=== PATIENT | female | born 1960 | race Caucasian/White ===

== ENCOUNTER 2017-03-15 23:54 | Emergency (ER) | payer BC ==
[2017-03-16] MEDS ORDERED: HYDROmorphone 1 MG/ML Syringe IM ONE (00:31)
--- NOTE | 2017-03-16 00:36 | EDM.PDOC ---
[id number] 4d ABD PAIN Time Seen by Provider: 03/16/17 00:15 Source: Reports: Patient, Family History Limitations: Reports: No limitations - History of Present Illness INITIAL COMMENTS - FREE TEXT/NARRATIVE: 57-year-old female with epigastric pain for the past 6 hours, started after she ate. No diarrhea, she did vomit once prior to coming into the hospital. Pain seems to radiate around to the back. No shortness of breath or pleuritic pain, no chest pain. No history of similar pain and no previous abdominal surgeries other than a years ago. She tried Rolaids and Prilosec which didn't help. Timing/Duration: Reports: Hour(s): (6 hours) Location: other (Pain is epigastric) Quality: Reports: ache, stabbing Severity: moderate Associated Symptoms (-Female): Reports: back pain, nausea/vomiting. 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: Endocrine/Metabolic History: Reports: Diabetes, type II - Infectious Disease History Infectious Disease History: Reports: Chicken pox - Past Surgical History Female Surgical History: Reports: section Social & Family History - Tobacco Use Smoking Status *Q: Current Every Day Smoker Years of Tobacco use: 35 Packs/Tins Daily: 0.5 - Caffeine Use Caffeine Use: Reports: Coffee, Soda - Recreational Drug Use Recreational Drug Use: No ED ROS GENERAL - Review of Systems Review Of Systems: See Below Constitutional: Denies: fever, chills, malaise HEENT: Reports: No symptoms Respiratory: Denies: Shortness of Breath, Pleuritic Chest Pain Cardiovascular: Reports: No symptoms GI/Abdominal: Reports: Abdominal pain, Nausea, Vomiting. Denies: Diarrhea, Hematemesis, Hematochezia : Reports: no symptoms Musculoskeletal: Reports: no symptoms Skin: Reports: no symptoms Neurological: Denies: Headache Psychiatric: Reports: No symptoms ED EXAM, GI/ABD - Physical Exam Exam: See Below Exam Limited By: No limitations General Appearance: alert, no apparent distress (Looks uncomfortable but not distressed) Eyes: bilateral: normal appearance (No jaundice) Respiratory/Chest: no respiratory distress, lungs clear Cardiovascular: regular rate, rhythm GI/Abdominal: soft, tenderness (Reactive tenderness in the epigastric and left upper quadrant but no guarding or rebound) Extremities: normal inspection. No: pedal edema Neurological: alert, oriented Psychiatric: normal affect, normal mood Skin Exam: Warm, Dry Course - Vital Signs Last Recorded V/S: Last Vital Signs Temp 98.9 F 03/16/17 00:11 Pulse 78 03/16/17 00:11 Resp 16 03/16/17 00:11 BP 135/96 H 03/16/17 00:11 Pulse Ox 93 L 03/16/17 00:11 - Orders/Labs/Meds Labs: Laboratory Tests 03/16/17 03/16/17 Range/Units 00:40 00:40 WBC 8.7 (4.5-11.0) K/uL RBC 4.91 (3.30-5.50) M/uL Hgb 15.5 H (12.0-15.0) g/dL Hct 45.6 (36.0-48.0) % MCV 93 (80-98) fL MCH 32 H (27-31) pg MCHC 34 (32-36) % Plt Count 219 (150-400) K/uL Neut % (Auto) 62 (36-66) % Lymph % (Auto) 22 L (24-44) % [place] % (Auto) 6 (2-6) % Eos % (Auto) 9 H (2-4) % Baso % (Auto) 2 H (0-1) % Sodium 144 (140-148) mmol/L Potassium 4.0 (3.6-5.2) mmol/L Chloride 109 H (100-108) mmol/L Carbon Dioxide 23 (21-32) mmol/L Anion Gap 16.0 H (5.0-14.0) mmol/L BUN 15 (7-18) mg/dL Creatinine 0.9 (0.6-1.0) mg/dL Est Cr Clr Drug Dosing TNP Estimated GFR (MDRD) > 60 (>60) Glucose 134 H (74-106) mg/dL Calcium 8.7 (8.5-10.1) mg/dL Total Bilirubin 0.4 (0.2-1.0) mg/dL AST 20 (15-37) U/L ALT 30 (12-78) U/L Alkaline Phosphatase 192 H (46-116) U/L Total Protein 7.8 (6.4-8.2) g/dL Albumin 3.8 (3.4-5.0) g/dL Globulin 4.0 H (2.3-3.5) g/dL Albumin/Globulin Ratio 1.0 L (1.2-2.2) Amylase 64 (25-115) U/L Lipase 117 (73-393) U/L Meds: Medications Discontinued Medications Generic Name Dose Route Start Last Admin Trade Name Freq PRN Reason Stop Dose Admin Hydromorphone HCl 1 mg 03/16/17 00:31 03/16/17 00:37 Dilaudid IM 03/16/17 00:32 1 mg ONETIME ONE Administration Ondansetron HCl 4 mg 03/16/17 00:58 03/16/17 01:05 Zofran Odt PO 03/16/17 00:59 4 mg ONETIME ONE Administration - Re-Assessments/Exams Free Text/Narrative Re-Assessment/Exam: 03/16/17 00:35 Patient was given 1 mg of Dilaudid IM, CBC CMP amylase and lipase were obtained. 03/16/17 01:26 Alkaline phosphatase was elevated at 192, otherwise labs were reassuring. Patient responded fairly well to the 1 mg of Dilaudid but needed 4 mg of sublingual Zofran for nausea. She'll return at 8 a.m. for a gallbladder ultrasound in a fasting state. Departure - Departure Time of Disposition: 01:40 Disposition: Home, Self-Care 01 Condition: good Clinical Impression: Abdominal pain Qualifiers: Abdominal location: epigastric Qualified Code(s): R10.13 - Epigastric pain Instructions: Abdominal Pain, Adult, [id number] Referrals: PCP,None [Primary Care Provider] - Forms: ED Department Discharge Care Plan Goals: Nothing to eat or drink after 4 AM, and return at around a 7:45 to register for a gallbladder ultrasound. . Officer will discuss the results if needed. Return sooner if worsening or concerns.
[2017-03-16] MEDS ORDERED: Ondansetron 4 MG Tab.DIS PO ONE (00:58)
[2017-03-16 01:34] VITALS: BP 135/96
== END 2017-03-16 01:40 | disposition home or self-care (01) ==
LOC: JP.ED 23:54
DX: R10.13 Epigastric pain (principal); J45.909 Unspecified asthma, uncomplicated; F17.210 Nicotine dependence, cigarettes, uncomplicated; Z79.899 Other long term (current) drug therapy; Z98.890 Other specified postprocedural states
CPT/HCPCS: 36415; 80053; 82150; 83690; 85025; 96372; 99284; A9270; J1170

== ENCOUNTER 2017-03-16 17:44 | Emergency (ER) | payer BC | END 2017-03-16 18:31 | disposition left against medical advice (07) | LOC: JP.ED 17:44 | DX: Z53.21 Procedure and treatment not carried out due to patient leaving prior to being seen by health care provider (principal) ==

== ENCOUNTER 2017-03-19 11:32 | Day surgery (SDC) | payer BC ==
[~2017-03-19 11:32] MED LIST: Bupivacaine 0.5% 50 ML MDV ONE; Lidocaine 1% with EPINEPHrine 1:100,000 50 ML MDV ONE
[2017-03-19] MEDS ORDERED: Ondansetron 4 MG/2 ML SDV ONE (11:45)
[2017-03-19] MEDS ORDERED: Rocuronium 50 MG/5 ML Vial ONE (11:45)
[2017-03-19] MEDS ORDERED: Neostigmine Methylsulfate 1 MG/ML 5 ML Syringe ONE (11:45)
[2017-03-19] MEDS ORDERED: Propofol 200 MG/20 ML SDV ONE (11:45)
[2017-03-19] MEDS ORDERED: fentaNYL 250 MCG/5 ML SDV ONE ×2 (11:45→13:45)
[2017-03-19] MEDS ORDERED: Succinylcholine/Normal Saline 200 MG/10 ML Syringe ONE (11:45)
[2017-03-19] MEDS ORDERED: Dexamethasone 4 MG/ML SDV ONE (11:45)
[2017-03-19] MEDS ORDERED: Lactated Ringers 1,000 ML IV SCH (12:45)
[2017-03-19] MEDS ORDERED: cefOXitin 2 GM in Sodium Chloride 0.9% 50 ML IV ONE (13:30)
[2017-03-19] MEDS ORDERED: HYDROmorphone/Normal Saline 15 MG/30 ML PCA IV PRN (13:37)
[2017-03-19] MEDS ORDERED: Naloxone 0.4 MG/ML SDV IVPUSH PRN (13:37)
--- NOTE | 2017-03-19 14:24 | CR ---
Cholangiogram. Findings: There is a tube overlying the upper common bile duct. No definite filling defect within th e common bile duct. Outpouching at the second portion of the duodenum at the sphincter could relate to a duodenal diverticulum which could be confirmed with CT.
[2017-03-19] MEDS: D5 1/2 NS w/ 20 mEq/L KCl 1,000 ML IV SCH ×2 (16:04→23:11)
[2017-03-19] MEDS: Ondansetron 4 MG/2 ML SDV IVPUSH PRN ×2 (18:05→23:08)
[2017-03-19] MEDS ORDERED: Acetaminophen 325 MG Tab PO PRN (23:10)
[2017-03-19] MEDS ORDERED: LORazepam 2 MG/ML MDV IVPUSH PRN (23:12)
[2017-03-20] MEDS ORDERED: Acetaminophen/HYDROcodone 325-5 MG Tab PO PRN (06:32)
--- NOTE | 2017-03-20 06:38 | PCM.SURGPN ---
- General Info Date of Service: 03/20/17 Date of Surgery/Procedure: 03/19/17 POD#: 1 Post-Op Diagnosis: Chronic cholecystitis with cholelithiasis Admission Diagnosis/Problem: Chronic cholecystitis Functional Status: Reports: pain controlled, tolerating diet, ambulating, urinating, incentive spirometry - Review of Systems General: Reports: No Symptoms HEENT: Reports: no symptoms Pulmonary: Reports: no symptoms Cardiovascular: Reports: No Symptoms Gastrointestinal: Reports: Nausea (Last night, no nausea now. ) Genitourinary: Reports: no symptoms Musculoskeletal: Reports: no symptoms Skin: Reports: no symptoms Neurological: Reports: No Symptoms Psychiatric: Reports: no symptoms - Patient Data Vitals - most recent: Last Vital Signs Temp 98.2 F 03/20/17 03:27 Pulse 75 03/20/17 03:27 Resp 16 03/20/17 03:27 BP 108/68 03/20/17 03:27 Pulse Ox 96 03/20/17 03:27 Weight - most recent: 157 lb 1 oz I&O - last 24 hours: Intake & Output 03/19/17 03/19/17 03/20/17 14:59 22:59 06:59 Intake Total 120 1850 Output Total 200 650 Balance -80 1200 Lab Results last 24 hrs: Laboratory Results - last 24 hr 03/20/17 03/20/17 Range/Units 05:23 05:23 WBC 13.5 H (4.5-11.0) K/uL RBC 4.60 (3.30-5.50) M/uL Hgb 14.6 (12.0-15.0) g/dL Hct 44.1 (36.0-48.0) % MCV 96 (80-98) fL MCH 32 H (27-31) pg MCHC 33 (32-36) % Plt Count 201 (150-400) K/uL Total Bilirubin 0.5 (0.2-1.0) mg/dL Direct Bilirubin 0.15 (0.0-0.2) mg/dL Indirect Bilirubin 0.35 AST 80 H D (15-37) U/L ALT 300 H (12-78) U/L Alkaline Phosphatase 208 H (46-116) U/L Total Protein 7.4 (6.4-8.2) g/dL Albumin 3.2 L (3.4-5.0) g/dL Globulin 4.2 H (2.3-3.5) g/dL Albumin/Globulin Ratio 0.8 L (1.2-2.2) Jarad Results last 24 hrs: Microbiology 03/19/17 14:23 Gram Stain - Final Gallbladder Fluid - Bile Med Orders - Current: Current Medications Acetaminophen (Tylenol) 650 mg PO Q4H PRN PRN Reason: Headache/Pain Last Admin: 03/19/17 23:25 Dose: 650 mg Hydrocodone Bitart/Acetaminophen ([place] 325-5 Mg) 1 - 2 tab PO Q4H PRN PRN Reason: Abdominal Pain Albuterol (Ventolin Hfa) 0 gm INH DAILY [facility] Hydromorphone HCl (Dilaudid Director Clinical Operations 15 Mg In Ns 30 Ml) 0 mg IV ASDIRECTED PRN; Protocol PRN Reason: Pain Last Admin: 03/19/17 13:55 Dose: 0.3 mg Lactated Ringer's (Ringers, Lactated) 1,000 mls @ 0 mls/hr IV ASDIRECTED SAM PRN Reason: KVO Last Admin: 03/19/17 12:17 Dose: 25 mls/hr Potassium Chloride/Dextrose/Sod Cl (D5 1/2 Ns W/ 20 Meq/L Kcl) 1,000 mls @ 125 mls/hr IV ASDIRECTED SAM Last Admin: 03/19/17 23:11 Dose: 125 mls/hr Lorazepam (Ativan) 1 mg IVPUSH Q1H PRN PRN Reason: Nausea Naloxone HCl (Narcan) 0.4 mg IVPUSH Q2M PRN PRN Reason: Respiratory Distress Ondansetron HCl (Zofran) 4 mg IVPUSH Q6H PRN PRN Reason: Nausea/Vomiting Last Admin: 03/19/17 23:08 Dose: 4 mg Discontinued Medications Bupivacaine HCl (Marcaine 0.5%) Confirm Administered Dose 50 ml .ROUTE .STK-MED ONE Stop: 03/19/17 10:28 Last Admin: 03/19/17 13:51 Dose: 10 ml Dexamethasone (Dexamethasone) Confirm Administered Dose 4 mg .ROUTE .STK-MED ONE Stop: 03/19/17 11:46 Fentanyl (Sublimaze) Confirm Administered Dose 250 mcg .ROUTE .STK-MED ONE Stop: 03/19/17 11:46 Fentanyl (Sublimaze) Confirm Administered Dose 250 mcg .ROUTE .STK-MED ONE Stop: 03/19/17 13:46 Glycopyrrolate () Confirm Administered Dose 1 mg .ROUTE .STK-MED ONE Stop: 03/19/17 11:46 Cefoxitin Sodium 2 gm/ Sodium (Chloride) 50 mls @ 100 mls/hr IV ONETIME ONE Stop: 03/19/17 13:59 Last Admin: 03/19/17 13:18 Dose: 100 mls/hr Lidocaine/Epinephrine (Xylocaine 1% With Epinephrine 1:100,000) Confirm Administered Dose 50 ml .ROUTE .STK-MED ONE Stop: 03/19/17 10:28 Last Admin: 03/19/17 13:52 Dose: 10 ml Neostigmine Methylsulfate (Neostigmine) Confirm Administered Dose 5 mg .ROUTE .STK-MED ONE Stop: 03/19/17 11:46 Ondansetron HCl (Zofran) Confirm Administered Dose 4 mg .ROUTE .STK-MED ONE Stop: 03/19/17 11:46 Propofol (Diprivan 20 Ml) Confirm Administered Dose 200 mg .ROUTE .STK-MED ONE Stop: 03/19/17 11:46 Rocuronium [place] (Zemuron) Confirm Administered Dose 50 mg .ROUTE .STK-MED ONE Stop: 03/19/17 11:46 Succinylcholine Chloride (Succinylcholine In Ns Pf) Confirm Administered Dose 200 mg .ROUTE .STK-MED ONE Stop: 03/19/17 11:46 - Exam Wound/Incisions: healing well, no drainage General: alert, oriented, cooperative, no acute distress Lungs: Decreased breath sounds Cardiovascular: Regular Rate, Regular Rhythm Abdomen: bowel sounds present, soft, no tenderness, no distension Extremities: no edema Skin: warm, dry, intact Neurological: no new focal deficit Psy/Mental Status: alert, normal affect, normal mood - Problem List & Annotations (1) Cholelithiasis and cholecystitis with obstruction SNOMED Code(s): 48586522 Code(s): K80.19 - CALCULUS OF GALLBLADDER W OTH CHOLECYSTITIS WITH OBSTRUCTION Status: Acute Current Visit: Yes - Problem List Review Problem List Initiated/Reviewed/Updated: Yes - My Orders Last 24 Hours: Active Orders 24 hr Category Date Time Status Patient Status [ADT] Routine ADT 03/19/17 15:10 Active Ambulate [RC] ASDIRECTED Care 03/19/17 15:10 Active Antiembolic Devices [RC] .Routine Care 03/19/17 15:16 Active Communication Order [RC] STAT Care 03/19/17 13:37 Active Notify Provider Vital Signs [RC] PRN Care 03/19/17 15:13 Active Notify Provider [RC] PRN Care 03/19/17 13:37 Active Oxygen Therapy [RC] PRN Care 03/19/17 15:10 Active HEAT TREAT FURNACE OPERATOR Record [RC] PER UNIT ROUTINE Care 03/19/17 13:37 Active Pulse Oximetry [RC] CONTINUOUS Care 03/19/17 13:37 Active RT Incentive Spirometry [RC] ASDIRECTED Care 03/19/17 15:10 Active Up With Assistance [RC] ASDIRECTED Care 03/19/17 15:10 Active Up to Chair [RC] ASDIRECTED Care 03/19/17 15:10 Active VTE/DVT Education [RC] Click to Edit Care 03/19/17 15:16 Active Respiratory Care Assess and Treatment [CONS] Routine Cons 03/19/17 15:10 Active Advance Diet Instructions [DIET] Diet 03/19/17 Dinner Active Regular Diet [DIET] Diet 03/20/17 Breakfast Ordered CULTURE ANAEROBIC [RM] Routine Lab 03/19/17 14:23 Results CULTURE WOUND + SMEAR [RM] Routine Lab 03/19/17 14:23 Results Acetaminophen [Tylenol] Med 03/19/17 23:10 Active 650 mg PO Q4H PRN Acetaminophen/HYDROcodone [[place] 325-5 MG] Med 03/20/17 06:32 Ordered 1 - 2 tab PO Q4H PRN Albuterol [Ventolin HFA] Med 03/20/17 09:00 Active 0 gm INH DAILY D5 1/2 NS w/ 20 mEq/L KCl 1,000 ml Med 03/19/17 15:30 Active IV ASDIRECTED HYDROmorphone/Normal Saline [Dilaudid HEAT TREAT FURNACE OPERATOR 15 MG in NS Med 03/19/17 13:37 Active 30 ML] See Protocol IV ASDIRECTED PRN LORazepam [Ativan] Med 03/19/17 23:12 Active 1 mg IVPUSH Q1H PRN Lactated Ringers [Ringers, Lactated] 1,000 ml Med 03/19/17 12:45 Active IV ASDIRECTED Naloxone [Narcan] Med 03/19/17 13:37 Active 0.4 mg IVPUSH Q2M PRN Ondansetron [Zofran] Med 03/19/17 15:10 Active 4 mg IVPUSH Q6H PRN Abdominal Binder [OM.PC] Per Unit Routine Oth 03/19/17 15:13 Ordered DVT/VTE Prophylaxis Reflex [OM.PC] Per Unit Routine Oth 03/19/17 15:16 Ordered Medication Discontinuation Instructions [OM.PC] Stat Oth 03/19/17 13:37 Ordered Sequential Compression Device [OM.PC] Routine Oth 03/19/17 12:30 Ordered Sequential Compression Device [OM.PC] Routine Oth 03/19/17 15:10 Ordered Resuscitation Status Routine Resus Stat 03/19/17 15:10 Ordered Medication Orders Acetaminophen (Tylenol) 650 mg PO Q4H PRN PRN Reason: Headache/Pain Last Admin: 03/19/17 23:25 Dose: 650 mg Hydrocodone Bitart/Acetaminophen ([place] 325-5 Mg) 1 - 2 tab PO Q4H PRN PRN Reason: Abdominal Pain Albuterol (Ventolin Hfa) 0 gm INH DAILY [facility] Hydromorphone HCl (Dilaudid Director Clinical Operations 15 Mg In Ns 30 Ml) 0 mg IV ASDIRECTED PRN; Protocol PRN Reason: Pain Last Admin: 03/19/17 13:55 Dose: 0.3 mg Lactated Ringer's (Ringers, Lactated) 1,000 mls @ 0 mls/hr IV ASDIRECTED SAM PRN Reason: KVO Last Admin: 03/19/17 12:17 Dose: 25 mls/hr Potassium Chloride/Dextrose/Sod Cl (D5 1/2 Ns W/ 20 Meq/L Kcl) 1,000 mls @ 125 mls/hr IV ASDIRECTED SAM Last Admin: 03/19/17 23:11 Dose: 125 mls/hr Infusion: 03/19/17 23:11 Dose: 125 mls/hr Admin: 03/19/17 16:04 Dose: 125 mls/hr Lorazepam (Ativan) 1 mg IVPUSH Q1H PRN PRN Reason: Nausea Naloxone HCl (Narcan) 0.4 mg IVPUSH Q2M PRN PRN Reason: Respiratory Distress Ondansetron HCl (Zofran) 4 mg IVPUSH Q6H PRN PRN Reason: Nausea/Vomiting Last Admin: 03/19/17 23:08 Dose: 4 mg Admin: 03/19/17 18:05 Dose: 4 mg - Assessment Assessment (Free Text/Narrative):: Doing well. - Plan Plan (Free Text/Narrative):: Oral pain medication, regular diet. If this is tolerated, discharge.
[2017-03-20 07:21] VITALS: BP 108/63
--- NOTE | 2017-03-20 07:58 | OR ---
DATE OF PROCEDURE: 03/19/2017 PREOPERATIVE DIAGNOSIS: Chronic cholecystitis with cholelithiasis. POSTOPERATIVE DIAGNOSIS: Chronic cholecystitis with cholelithiasis. PROCEDURE: Laparoscopic cholecystectomy. ANESTHESIA: General endotracheal. INDICATION: This 57-year-old white female had two daily episodes of severe right upper quadrant and epigastric abdominal pain that radiated into her back this past weekend. She had an abdominal ultrasound which showed cholelithiasis. The common duct measured 7 mm in diameter. Liver functions are unremarkable except for a slightly elevated alkaline phosphatase at 192. She is admitted at this time for a laparoscopic cholecystectomy with intraoperative cholangiogram. Prior abdominal surgery consists of sections. I counseled her for surgery including risks and alternatives, and she gave her informed consent to proceed. PROCEDURE: After adequate general endotracheal anesthesia was obtained, the patient's abdomen was prepped and draped in the usual sterile fashion. Time-out was held. The leg compression stockings were in place and used during the entire procedure. An infraumbilical semicircular incision was made. Under direct vision, a 12-mm port was introduced in the abdomen through this incision using the Optiview technique. The camera was introduced into the abdomen and the abdomen was insufflated to a pressure of 20 mmHg with carbon dioxide. No evidence of intraabdominal injury was seen. Under direct vision, a 12-mm port was placed in the epigastrium and a 5-mm port was placed in the right lower quadrant. The gallbladder was grasped and elevated. There were multiple adhesions of omentum to it. These were dissected free. The cystic duct and artery were dissected free. The artery was clipped 3 times proximally, once distally, and divided between clips. A clip was then placed up on the distal cystic duct right at the gallbladder and then a ductotomy was made next to it. A cholangiocatheter was then placed into the duct and cholangiograms were obtained by injecting 7 and then 20 mL of half-strength contrast material. This showed good flow into the duodenum, no filling defects, retrograde flow into the hepatic radicles, and normal- sized duct. There was a defect present in the duct, which was consistent with the balloon. The balloon was deflated and the cholangiocatheter was removed. The duct was then clipped 3 times proximal to the ductotomy site and divided at the ductotomy site. This was all done well away from the common duct. The gallbladder was then dissected free from the gallbladder bed using Bovie electrocautery. It was placed in a sample retrieval bag and elevated up through the anterior abdominal wall via the epigastric port site. It was opened off the field and noted to contain small stones and a single large stone. The epigastric port was reintroduced back in the abdomen. The gallbladder bed was irrigated and suctioned dry. Hemostasis was noted. All looked well. The fascial closure device was used to place an 0 Vicryl stitch in the epigastric fascial defect. The infraumbilical port was removed where an interrupted stitch of 0 Vicryl was used to close this fascial defect. We evacuated as much CO2 from the abdomen as we could via the 5-mm port site in the right lower quadrant and then this port was removed. Lidocaine 1% with epinephrine in a 50: 50 mix with 0.5% Marcaine was infiltrated about all incisions, 4-0 Vicryl using a subcuticular stitch was placed to approximate the skin of the incisions. Dermabond was applied. The anesthesia was reversed. She was extubated and brought to recovery room in good condition. Cipriano Boykin MD /[id number] [email or web address]
[2017-03-20] MEDS ORDERED: Albuterol 8 GM Inhaler INH SCH (09:00)
== END 2017-03-20 08:55 | disposition home or self-care (01) ==
LOC: JP.SDS 11:32 → JP.2SS 15:00 → JP.SDS 03-20 08:50
PROVIDERS: ATTEND Surgery
DX: K80.10 Calculus of gallbladder with chronic cholecystitis without obstruction (principal); Z79.899 Other long term (current) drug therapy
CPT/HCPCS: 36415; 47562; 74300; 80076; 85027; 87070; 87075; 87205; 94762; A9270; J0694; J1100; J1170; J2405; J2704; J3010; J3480; J7050; J7120; 88304